=== PATIENT | male | born 1980 | race Caucasian/White ===

== ENCOUNTER 2020-06-09 08:23 | Outpatient (REF) | payer OTHER, SELFPAY | END 2020-06-09 08:24 | disposition home or self-care (01) | LOC: HO.LAB 08:23 | PROVIDERS: Visit Provider Internal Medicine | DX: Z20.828 Contact with and (suspected) exposure to other viral communicable diseases (principal) | CPT/HCPCS: 87635 ==

== ENCOUNTER → 2020-06-29 15:44 | Outpatient (BNVA) | payer OTHER, SELFPAY | PROVIDERS: Visit Provider Internal Medicine | DX: Z77.21 Contact with and (suspected) exposure to potentially hazardous body fluids (principal) | CPT/HCPCS: 36415; 84450; 84460; 85025; 86704; 86706; 86803; 87340; 87389; 90746; 99203 ==

== ENCOUNTER → 2020-07-01 13:53 | Outpatient (BNVA) | payer OTHER, SELFPAY | PROVIDERS: Visit Provider Internal Medicine | DX: Z77.21 Contact with and (suspected) exposure to potentially hazardous body fluids (principal) | CPT/HCPCS: 99213 ==

== ENCOUNTER → 2020-07-13 14:04 | Outpatient (BNVA) | payer OTHER, SELFPAY | PROVIDERS: Visit Provider Internal Medicine | DX: Z77.21 Contact with and (suspected) exposure to potentially hazardous body fluids (principal) | CPT/HCPCS: 36415; 80076; 82150; 82565; 85025; 99213 ==

== ENCOUNTER 2024-02-20 16:42 | Emergency (ER) | payer BC, SELFPAY ==
--- NOTE | ~2024-02-20 | XR_ITS ---
EXAMINATION: XR CHEST 2 VIEW CLINICAL INFORMATION: Chest pain COMPARISON: 03/07/2019 TECHNIQUE: PA and lateral views of the chest obtained. FINDINGS: The lungs are clear. There are no pleural effusions. The cardiomediastinal silhouette is normal. No rib fracture or pneumothorax is detected. XR/XR chest 2V IMPRESSION: No acute cardiopulmonary disease.
--- NOTE | 2024-02-20 16:44 | ECG_ITS ---
Test Reason : CHEST PAIN Blood Pressure : / mmHG Vent. Rate : 071 BPM Atrial Rate : 071 BPM P-R Int : 172 ms QRS Dur : 086 ms QT Int : 378 ms P-R-T Axes : 037 000 047 degrees QTc Int : 410 ms Normal sinus rhythm Nonspecific ST and T wave abnormality Borderline ECG When compared with ECG of 22-SEP-2002 10:10, ST no longer elevated in Anterior leads Nonspecific T wave abnormality now evident in Inferior leads Nonspecific T wave abnormality now evident in Lateral leads Referred By: Phyllis Sorto Electronically Signed By:BRYANT SANTIAGO
--- NOTE | 2024-02-20 16:51 | ED.GENADULT ---
HPI - General Adult General Chief complaint: Chest Pain Stated complaint: Heartburn Time Seen by Provider: 02/20/24 17:30 Source: patient History of Present Illness ED Provider: Shay LIMON narrative: 43-year-old male past medical history of GERD presenting for chest pain. Pt states he has been experiencing symptoms of heartburn for the past few days. Prior to onset he was eating a lot of candy and yesterday evening his symptoms started with nausea, a few episodes of nonbloody nonbilious emesis and chest pressure. He has had these symptoms in the past however he spoke with his PCP who instructed him to go to the ED. He experiencing mild sob this morning however that has resolved. He is still experiencing substernal chest pain. He denies fevers, chills, abd pain. Onset (ago): day(s) Location: chest Radiation: non-radiation Related Data Allergies Allergy/AdvReac Type Severity Reaction Status Date / Time No Known Allergies Allergy Verified 02/20/24 16:54 Review of Systems Review of Systems: Constitutional : No Fever, No Chills ENT/Mouth : no oral swelling, No Hoarseness, No Swallowing Difficulty Eyes: No Eye Pain, No Swelling, No Redness Cardiovascular : Chest Pain and SOB Respiratory : No Cough, No Sputum, No Wheezing, No Smoke Exposure, No Dyspnea Gastrointestinal : positive nausea and vomiting, No Diarrhea, No abdominal Pain Genitourinary : No Dysuria, No Urinary Frequency, No Hematuria Musculoskeletal : No joint pain, No Myalgias, No Joint Swelling Skin : No Skin Lesions, positive rash Neuro : No Weakness, No Numbness, No Headache Psych : No Anxiety/Panic, No Depression Heme/Lymph: No Bruising, No Lymphadenopathy Endocrine : No Polyuria, No Polydipsia All other systems reviewed and are negative [facility] Past Medical History Attestation statement: The following information was validated with the patient. [facility] Narrative: GERD Source: old records reviewed Social History Social History Smoked in Last 30 Days: No Advance Directives: No Advance Directives Information Provided: No Physical Exam ED Vital Signs: Vital Signs - 24 hr 02/20/24 16:52 02/20/24 18:40 02/20/24 19:32 Temperature 97.7 F 98.2 F 98.2 F Pulse Rate 79 58 61 Respiratory Rate 18 16 18 Blood Pressure 124/91 H 117/77 120/83 Pulse Oximetry 98 97 98 Oxygen Delivery Method Room Air Room Air Room Air BMI result Body Mass Index 28.5 Course Course Course Narrative: This is an RME done by ELDON Sorto: Additional HPI, ROS, PE not included below will be deferred to primary provider. 43 yo m hx of gerd on omeprazole presents w/ severe heartburn and chest pain today around 10 am. He reached out to pcp that recommended for him to come get seen here. Reprots laying down pain is worse and when eating sour things. Appearance: Alert.? Oriented X3.? No acute cardiopulmonary distress distress.? Head: Normocephalic, atraumatic, no step-offs or deformities Neck: Normal inspection.? Neck supple.? CVS: Pulses normal.? Respiratory: No respiratory distress.? Abdomen: Soft and nontender.? Skin: ? Normal skin color. Extremities: 5/5 strength to bilateral upper and lower extremities Back: No midline tenderness, no C-spine tenderness, full range of motion, No CVA tenderness bilaterally Neuro: Oriented X 3.? No motor deficit.? No sensory deficit. Reevaluation(s) Reevaluation #1: Chest x-ray, Pepcid, Maalox and lipase over Time: 17:45 Medications Administered Discontinued Medications Generic Name Dose Route Start Last Admin Trade Name Freq PRN Reason Stop Dose Admin Al Hydroxide/Mg Hydroxide 15 ml 02/20/24 17:40 02/20/24 18:32 Magnesium Hydrox/Alum Hydrox 30 Ml Oral.Susp PO 02/20/24 17:41 15 ml ONCE ONE Administration Famotidine 20 mg 02/20/24 17:40 02/20/24 18:32 Famotidine 20 Mg Tablet PO 02/20/24 17:41 20 mg ONCE ONE Administration Medical Decision Making Medical Decision Making [facility] Narrative: Concerns for acid reflux, gastritis, pancreatitis I am also considering ACS/angina however less likely given HPI; troponins ordered Labs reviewed --> Negative troponin, CBC and BMP within normal limits, lipase and LFTs within normal limits - less likely biliary disease, pancreatitis EKG reviewed --> no ischemic changes appreciated - less likely ACS/angina On reassessment patient reports significant improvement of symptoms and is tolerating p.o. intake. He would like to be discharged home. I believe patient's symptoms are secondary to acid reflux. I gave him instructions to follow up with his PCP and ask for a referral to Gastroenterology. Differential Diagnosis Differential Diagnoses: The differential diagnosis associated with the presentation includes Acid reflux, ACS/angina, gastritis, pancreatitis Lab Data 02/20/24 17:07 02/20/24 17:07 Labs: Lab Results 02/20/24 02/20/24 Range/Units 17:07 18:00 WBC 5.8 (4.8-10.8) X10*3/uL RBC 4.72 (4.60-5.80) X10*6/uL Hgb 14.8 (14.0-18.0) g/dl Hct 41.2 L (42.0-52.0) % MCV 87.3 (80.0-98.0) fL MCH 31.4 (27.0-33.0) pg MCHC 35.9 (31.0-36.0) g/dl RDW 11.2 (11.0-16.0) % Plt Count 202 (160-400) X10*3/uL MPV 10.1 (9.4-12.4) fL Immature Gran % (Auto) 0.3 (0.0-0.4) % Neut % (Auto) 65.6 (45-73) % Lymph % (Auto) 25.1 (20-40) % Barton % (Auto) 6.5 (2-11) % Eos % (Auto) 2.2 (0-4) % Baso % (Auto) 0.3 (0-2) % Lymph # (Auto) 1.5 (1.2-4.9) X10*3/uL Barton # (Auto) 0.4 (0.1-1.2) X10*3/uL Eos # (Auto) 0.1 (0.0-0.4) X10*3/uL Baso # (Auto) 0.0 (0.0-0.2) X10*3/uL Abs Immat Gran (auto) 0.02 (0.00-0.03) X10*3/uL Absolute Neuts (auto) 3.8 (2.0-8.3) x10*3/uL Absolute Nucleated RBC 0.000 (0.0-0.012) X10*3/uL Nucleated RBC % (auto) 0.0 (0.0-0.2) /100WBC Sodium 138 (135-145) mmol/L Potassium 3.8 (3.3-5.1) mmol/L Chloride 102 (96-108) mmol/L Carbon Dioxide 28 (22-29) mmol/L Anion Gap 12 (12-20) BUN 18 H (9-16) mg/dL Creatinine 0.91 (0.5-1.4) mg/dL Estim Creat Clear Calc 119.3 Estimated GFR > 60 Random Glucose 116 H (60-115) mg/dL Calcium 9.2 (8.4-10.2) mg/dL Total Bilirubin 0.7 (0.0-1.0) mg/dL AST 11 (5-37) U/L ALT 13 (0-40) U/L Alkaline Phosphatase 55 (39-117) U/L Troponin I High Sens < 2.7 (<3.5-35.0) ng/L Total Protein 6.8 (6.5-8.0) g/dL Albumin 4.3 (3.5-5.0) g/dL Lipase 19 (8-78) U/L Discharge Plan Discharge Clinical Impression: Chest pain, Acid reflux Patient Disposition: Home, Self-Care Instructions: Gastroesophageal Reflux Disease (DC) Additional Instructions: Please follow-up with your PCP. You should ask for a referral to Gastroenterology You can take Pepcid and Maalox for symptomatic relief. Please refer to GERD discharge instructions for diet that may help with your symptoms She develop any new or worsening symptoms please return to the emergency department Print Language: Czech
[2024-02-20 16:52] VITALS: BP 124/91; PULSE 79; RESP 18; TEMP 36.5; O2SAT 98; BMI 28.5
[2024-02-20 17:11] LABS: MANUAL DIFF FLAG NO
[2024-02-20 17:14] LABS: Basophils Percent Auto 0.3 % (0-2); Eosinophils Absolute Auto 0.1 X10*3/uL (0.0-0.4); Eosinophils Percent Auto 2.2 % (0-4); Hematocrit 41.2 % (42.0-52.0); Hemoglobin 14.8 g/dl (14.0-18.0); Imm Gran Abs Auto 0.02 X10*3/uL (0.00-0.03); Imm Gran Pct Auto 0.3 % (0.0-0.4); Lymphocytes Absolute Auto 1.5 X10*3/uL (1.2-4.9); Lymphocytes Percent Auto 25.1 % (20-40); Mean Corpuscular HGB Conc 35.9 g/dl (31.0-36.0); Mean Corpuscular Hemoglobin 31.4 pg (27.0-33.0); Mean Corpuscular Volume 87.3 fL (80.0-98.0); Mean Platelet Volume 10.1 fL (9.4-12.4); Monocytes Absolute Auto 0.4 X10*3/uL (0.1-1.2); Monocytes Percent Auto 6.5 % (2-11); Neutrophils Absolute Auto 3.8 x10*3/uL (2.0-8.3); Neutrophils Percent Auto 65.6 % (45-73); Platelet Count 202 X10*3/uL (160-400); Red Blood Count 4.72 X10*6/uL (4.60-5.80); Red Cell Distribution Width 11.2 % (11.0-16.0); White Blood Count 5.8 X10*3/uL (4.8-10.8)
[2024-02-20 17:25] LABS: Alanine Aminotransferase 13 U/L (0-40); Albumin Level 4.3 g/dL (3.5-5.0); Alkaline Phosphatase 55 U/L (39-117); Anion Gap 12 (12-20); Aspartate Amino Transferase 11 U/L (5-37); Bilirubin Total 0.7 mg/dL (0.0-1.0); Blood Urea Nitrogen 18 mg/dL (9-16); Calcium 9.2 mg/dL (8.4-10.2); Carbon Dioxide 28 mmol/L (22-29); Chloride 102 mmol/L (96-108); Creatinine Clr Calc Pharmacy 119.3; Estimated Glomerular Filt Rate > 60; Glucose Random 116 mg/dL (60-115); Potassium 3.8 mmol/L (3.3-5.1); Sodium 138 mmol/L (135-145); Total Protein 6.8 g/dL (6.5-8.0)
[2024-02-20 17:34] LABS: Troponin-I High Sensitivity < 2.7 ng/L (<3.5-35.0)
[2024-02-20 18:27] LABS: Lipase 19 U/L (8-78)
[2024-02-20] MEDS: Magnesium Hydrox/Alum Hydrox 30 ML ORAL.SUSP 15 ML PO (18:32)
[2024-02-20] MEDS: Famotidine 20 MG TABLET PO (18:32)
--- NOTE | 2024-02-20 18:38 | PC.NURSE ---
pt medicated per MAR
[2024-02-20 18:40] VITALS: BP 117/77; PULSE 58; RESP 16; TEMP 36.8; O2SAT 97
[2024-02-20 19:32] VITALS: BP 120/83; PULSE 61; RESP 18; TEMP 36.8; O2SAT 98
--- NOTE | 2024-02-20 19:35 | MHC.EDTECH ---
This tech took over care of patient at 1900,hourly rounds and vitals completed,patient is waiting for discharge at this time,call swartz in reach
[2024-02-20 19:39] VITALS: BP 120/83; PULSE 61; RESP 18; TEMP 36.8; O2SAT 98
== END 2024-02-20 19:40 | disposition home or self-care (01) ==
PROVIDERS: Physician Assistant; Emergency Provider Student in an Organized Health Care Education/Training Program
DX: R07.9 Chest pain, unspecified (principal); K21.9 Gastro-esophageal reflux disease without esophagitis; R12 Heartburn; R06.02 Shortness of breath
CPT/HCPCS: 36415; 71046; 80053; 83690; 84484; 85025; 93005; 99283; 99285

== ENCOUNTER → 2024-02-20 16:44 | Outpatient (BNV) | payer BC, SELFPAY | PROVIDERS: Emergency Provider Student in an Organized Health Care Education/Training Program; Visit Provider Internal Medicine | DX: R07.9 Chest pain, unspecified (principal); R94.31 Abnormal electrocardiogram [ECG] [EKG] | CPT/HCPCS: 93010 ==

== ENCOUNTER 2024-04-06 14:44 | Emergency (ER) | payer BC, SELFPAY ==
--- NOTE | 2024-04-06 14:53 | ED_ITS ---
HPI - Abdominal Pain General Chief Complaint: Abdominal Pain Stated Complaint: abd pain Time Seen by Provider: 04/06/24 15:56 Source: patient Limitations: no limitations History of Present Illness HPI narrative: 46-year-old male who has a history of opioid and alcohol use, currently on methadone 64 mg take-home bottles, presents for evaluation of diffuse abdominal pain. Patient states he normally is able to move his bowels without difficulty despite being on methadone. He did have a recent increase in his methadone dosing. He also admits to intermittent use of fentanyl which he snorts. Patient states he just started snorting again this past Sunday. He typically snorts 1-4 bags a day. He describes his use as episodic. Patient states he uses harm reduction techniques such as calling the safe line. Patient states the abdominal pain has been diffuse and crampy. He reports it felt similar to previous episodes of constipation. He took some milk of magnesia prior to coming in states that he is already feeling better. Currently he is asymptomatic and has no physical complaints at this time. He is passing flatus. He actually feels the urge to move his bowels. He denies any urinary symptoms. He denies any suicidal or homicidal ideation. Patient is refusing any additional care team referral or treatment. 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 He does endorse positive support team from his at home. Related Data Previous Rx's ?Medication ?Instructions ?Recorded docusate sodium 100 mg capsule 100 mg PO BID #20 caps 04/06/24 (Colace) polyethylene glycol 3350 17 17 g PO DAILY #238 grams 04/06/24 gram/dose oral powder (Miralax) Allergies Allergy/AdvReac Type Severity Reaction Status Date / Time No Known Allergies Allergy Verified 04/06/24 14:56 Review of Systems Review of Systems Yes all other systems are reviewed and are negative Gastrointestinal: Reports abdominal pain (Resolved), Reports constipation, Denies loose stools, Denies nausea and Denies vomiting Psychiatric: Denies homicidal ideation and Denies suicidal ideation [facility] Past Medical History Attestation statement: The following information was validated with the patient. [facility] Narrative: Alcohol and opioid use history Social History Social History Smoked in Last 30 Days: Yes Substance Use Type: Other Substance Use Type Other:: fentanyl, METHADONE Substance Use Frequency: Daily Last Used Substance: Hours (ago) Any prior treatment program specific to substance use: No Advance Directives: No Advance Directives Information Provided: No Physical Exam ED Vital Signs: Vital Signs - 24 hr 04/06/24 14:54 04/06/24 16:09 Temperature 97.9 F 98.5 F Pulse Rate 65 59 Respiratory Rate 18 16 Blood Pressure 127/79 129/80 Pulse Oximetry 97 96 Oxygen Delivery Method Room Air Room Air BMI result Body Mass Index 27.7 Patient is well-appearing and in no acute distress. Patient denying any physical complaints at this time. Const General: cooperative, alert, awake and Physically active Resp Auscultation: clear to auscultation bilaterally Cardio Rate: regular rate Rhythm: regular rhythm GI Other: Normoactive bowel sounds throughout. Abdomen is soft and nontender. There is no peritoneal signs. No Morales's sign. No CVAT. Psych Attitude: cooperative Course Course Course Narrative: This is a Rapid Medical Exam performed in triage by Teri Crowley PA-C. Full HPI, ROS and PE to be performed by primary ED provider. 43 yo M w/no sig PMHx presenting to the ED c/o epigastric abdominal pain radiating to back x5-6hrs. Admits to constipation, last BM 2 days. Denies passing flatus today, believes passed yesterday, is burping. Took Milk of Mag 30mins [employer]. On Methadone 64mg & started using fentanyl 2 days ago (sniffs). denies ETOH use (4yrs sober) PE: uncomfortable, abdomen soft +epigastric/RUQ ttp, no rebound or guarding Plan: Labs, UA, tox screen Medical Decision Making Medical Decision Making MDM Narrative: 43-year-old male who has a history of opioid and alcohol use history, currently on methadone, recent episodic usage of snorting fentanyl, presents with concern for constipation. Currently the patient is asymptomatic and has no physical complaints at this time after using milk of magnesia. He is refusing any additional workup including labs or imaging. He is requesting discharge home. I reviewed all labs at this time. No acute process. There is no acute psychiatric process at this time. There is no evidence of opioid intoxication or withdrawal. Abdomen exam is reassuring. Patient expresses understanding of all discharge instructions and has no further questions at this time. Feels comfortable with discharge plan, is able to contract for safety and once again endorses good support at home. He is agreeable to trial of MiraLax and Colace. Patient discharged with his . No further questions at this time. Differential Diagnosis Differential Diagnoses: The differential diagnosis associated with the presentation includes Opiate use, episodic Opioid dependence Dehydration Constipation Bowel obstruction Lab Data MDM Lab Attestation statement: I reviewed the patient's lab results. 04/06/24 15:16 04/06/24 15:16 Labs: Lab Results 04/06/24 Range/Units 15:16 WBC 5.0 (4.8-10.8) X10*3/uL RBC 4.77 (4.60-5.80) X10*6/uL Hgb 14.7 (14.0-18.0) g/dl Hct 41.9 L (42.0-52.0) % MCV 87.8 (80.0-98.0) fL MCH 30.8 (27.0-33.0) pg MCHC 35.1 (31.0-36.0) g/dl RDW 11.4 (11.0-16.0) % Plt Count 184 (160-400) X10*3/uL MPV 10.8 (9.4-12.4) fL Immature Gran % (Auto) 0.2 (0.0-0.4) % Neut % (Auto) 57.4 (45-73) % Lymph % (Auto) 32.5 (20-40) % [place] % (Auto) 5.9 (2-11) % Eos % (Auto) 3.4 (0-4) % Baso % (Auto) 0.6 (0-2) % Lymph # (Auto) 1.6 (1.2-4.9) X10*3/uL [place] # (Auto) 0.3 (0.1-1.2) X10*3/uL Eos # (Auto) 0.2 (0.0-0.4) X10*3/uL Baso # (Auto) 0.0 (0.0-0.2) X10*3/uL Abs Immat Gran (auto) 0.01 (0.00-0.03) X10*3/uL Absolute Neuts (auto) 2.8 (2.0-8.3) x10*3/uL Absolute Nucleated RBC 0.000 (0.0-0.012) X10*3/uL Nucleated RBC % (auto) 0.0 (0.0-0.2) /100WBC Sodium 141 (135-145) mmol/L Potassium 3.7 (3.3-5.1) mmol/L Chloride 106 (96-108) mmol/L Carbon Dioxide 25 (22-29) mmol/L Anion Gap 14 (12-20) BUN 14 (9-16) mg/dL Creatinine 0.92 (0.5-1.4) mg/dL Estim Creat Clear Calc 111.2 Estimated GFR > 60 Random Glucose 143 H (60-115) mg/dL Calcium 9.2 (8.4-10.2) mg/dL Magnesium 2.1 (1.6-2.6) mg/dL Total Bilirubin 0.7 (0.0-1.0) mg/dL Direct Bilirubin 0.2 (0.0-0.5) mg/dL AST 11 (5-37) U/L ALT 11 (0-40) U/L Alkaline Phosphatase 50 (39-117) U/L Total Protein 6.5 (6.5-8.0) g/dL Albumin 4.0 (3.5-5.0) g/dL Lipase 23 (8-78) U/L Independent Interpretation I performed an independent interpretation of an: EKG Independent Historian Clinical information obtained from an independent historian. History obtained from or confirmed by: Spouse Tests considered The following testing was considered but not selected: Additional testing considered with CT or plain film abdominal x-ray however patient refused Prescription Management I considered prescription management with: Other (Colace and MiraLax) Social Determinants Patient?s care significantly limited by Social Determinants of Health including: Alcoholism and drug addiction in family Discharge Plan Discharge Clinical Impression: Abdominal pain, Constipation due to opioid therapy Patient Disposition: Home, Self-Care Instructions: Constipation (ED), Abdominal Pain (ED) Additional Instructions: Drink plenty of fluids. Continue methadone as directed. Avoid all opioid use. If you do continue to use, continue to use the arm reduction techniques including the safe line. Colace and MiraLax as directed. Follow-up with your primary care provider. Call this week to schedule a follow- up appointment. Return to the emergency department if you have any worsening of symptoms, or any concerns. Get well soon! Prescriptions: New docusate sodium [Colace] 100 mg capsule 100 mg PO BID Qty: 20 0RF polyethylene glycol 3350 [Miralax] 17 gram/dose powder 17 g PO DAILY Qty: 238 0RF Print Language: Ukrainian
[2024-04-06 14:54] VITALS: BP 127/79; PULSE 65; RESP 18; TEMP 36.6; O2SAT 97; BMI 27.7
--- NOTE | 2024-04-06 14:55 | ECG_ITS ---
Test Reason : ABDOMINAL PAIN Blood Pressure : / mmHG Vent. Rate : 057 BPM Atrial Rate : 057 BPM P-R Int : 182 ms QRS Dur : 082 ms QT Int : 426 ms P-R-T Axes : 048 009 037 degrees QTc Int : 414 ms Sinus bradycardia Otherwise normal ECG When compared with ECG of 20-FEB-2024 16:43, Heart rate has decreased Referred By: Teri Crowley Electronically Signed By:VLAD TAVAREZ
[2024-04-06 15:32] LABS: MANUAL DIFF FLAG NO
[2024-04-06 15:34] LABS: Basophils Percent Auto 0.6 % (0-2); Eosinophils Absolute Auto 0.2 X10*3/uL (0.0-0.4); Eosinophils Percent Auto 3.4 % (0-4); Hematocrit 41.9 % (42.0-52.0); Hemoglobin 14.7 g/dl (14.0-18.0); Imm Gran Abs Auto 0.01 X10*3/uL (0.00-0.03); Imm Gran Pct Auto 0.2 % (0.0-0.4); Lymphocytes Absolute Auto 1.6 X10*3/uL (1.2-4.9); Lymphocytes Percent Auto 32.5 % (20-40); Mean Corpuscular HGB Conc 35.1 g/dl (31.0-36.0); Mean Corpuscular Hemoglobin 30.8 pg (27.0-33.0); Mean Corpuscular Volume 87.8 fL (80.0-98.0); Mean Platelet Volume 10.8 fL (9.4-12.4); Monocytes Absolute Auto 0.3 X10*3/uL (0.1-1.2); Monocytes Percent Auto 5.9 % (2-11); Neutrophils Absolute Auto 2.8 x10*3/uL (2.0-8.3); Neutrophils Percent Auto 57.4 % (45-73); Platelet Count 184 X10*3/uL (160-400); Red Blood Count 4.77 X10*6/uL (4.60-5.80); Red Cell Distribution Width 11.4 % (11.0-16.0)
[2024-04-06 15:50] LABS: Alanine Aminotransferase 11 U/L (0-40); Alkaline Phosphatase 50 U/L (39-117); Anion Gap 14 (12-20); Aspartate Amino Transferase 11 U/L (5-37); Bilirubin Direct 0.2 mg/dL (0.0-0.5); Bilirubin Total 0.7 mg/dL (0.0-1.0); Blood Urea Nitrogen 14 mg/dL (9-16); Calcium 9.2 mg/dL (8.4-10.2); Carbon Dioxide 25 mmol/L (22-29); Chloride 106 mmol/L (96-108); Creatinine Clr Calc Pharmacy 111.2; Estimated Glomerular Filt Rate > 60; Glucose Random 143 mg/dL (60-115); Lipase 23 U/L (8-78); Magnesium 2.1 mg/dL (1.6-2.6); Potassium 3.7 mmol/L (3.3-5.1); Sodium 141 mmol/L (135-145); Total Protein 6.5 g/dL (6.5-8.0)
[2024-04-06 16:09] VITALS: BP 129/80; PULSE 59; RESP 16; TEMP 36.9; O2SAT 96
[2024-04-06 16:11] LABS: Troponin-I High Sensitivity < 2.7 ng/L (<3.5-35.0)
[2024-04-06 16:17] VITALS: BP 128/70; PULSE 66; RESP 12; TEMP 36.8; O2SAT 98
== END 2024-04-06 16:20 | disposition home or self-care (01) ==
PROVIDERS: Physician Assistant; Emergency Provider Emergency Medicine
DX: R10.9 Unspecified abdominal pain (principal); K59.03 Drug induced constipation; Y92.89 Other specified places as the place of occurrence of the external cause; R00.1 Bradycardia, unspecified; T40.415A Adverse effect of fentanyl or fentanyl analogs, initial encounter; Z79.899 Other long term (current) drug therapy
CPT/HCPCS: 36415; 80048; 80076; 83690; 83735; 84484; 85025; 93005; 99284

== ENCOUNTER 2024-09-02 14:17 | Emergency (ER) | payer BC, SELFPAY ==
--- NOTE | ~2024-09-02 | XR_ITS ---
EXAMINATION: XR CHEST CLINICAL INFORMATION: coughing. pneumonia COMPARISON: X-ray dated February 20, 2024 TECHNIQUE: Frontal view of the chest was obtained. FINDINGS: No consolidation, pleural effusion or pneumothorax. Cardiomediastinal silhouette is normal. Mild multilevel thoracic spondylosis. Mild S-shaped curvature of the upper thoracic spine. XR/XR chest 1V IMPRESSION: No acute airspace disease. Electronically signed by: Sky Philip MD 09/02/2024 03:04 PM [facility]
[2024-09-02 14:30] VITALS: BP 142/97; PULSE 87; RESP 16; TEMP 36.9; O2SAT 97; BMI 26.9
--- NOTE | 2024-09-02 14:36 | ED.GENADULT ---
HPI - General Adult General Chief complaint: General Medical Stated complaint: Vomiting, sweating Time Seen by Provider: 09/02/24 21:48 Source: patient and other (Significant other, Bri) Mode of arrival: ambulatory Limitations: no limitations History of Present Illness ED Provider: Dr. 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 Patient states that he did go to an urgent care clinic on 08/30/2024 since his left ear was draining fluid and he was diagnosed with left otitis media and started on amoxicillin 500 mg b.i.d. x7 days. He states that his left ears improved but his other symptoms have persisted. He states that his cough is productive of thick, yellow sputum with no blood in the sputum. He states that he has increased fatigue, feels hot, cold and feels dizzy. He states he was not able to go to work today secondary to his symptoms. Related Data Previous Rx's ?Medication ?Instructions ?Recorded docusate sodium 100 mg capsule 100 mg PO BID #20 caps 04/06/24 (Colace) polyethylene glycol 3350 17 17 g PO DAILY #238 grams 04/06/24 gram/dose oral powder (Miralax) azithromycin 250 mg tablet See Rx Instructions PO .COMPLEX #6 09/02/24 (Zithromax Z-Andres) tabs Allergies Allergy/AdvReac Type Severity Reaction Status Date / Time No Known Allergies Allergy Verified 09/02/24 14:32 Review of Systems Review of Systems: Yes all other systems are reviewed and are negative [facility] Past Medical History [facility] Narrative: Social history: He does smoke cigarettes. He denies alcohol use. He does use intranasal heroin and he was used over the last 4 days. He did get his methadone dose today. Social History Social History Substance Use Type: Other Advance Directives: No Advance Directives Information Provided: Yes Do you have a plan to hurt others: No Plan Physical Exam ED Vital Signs: Vital Signs - 24 hr 09/02/24 14:30 09/02/24 19:28 09/02/24 22:24 Temperature 98.4 F 99.3 F 99.3 F Pulse Rate 87 74 74 Respiratory Rate 16 18 18 Blood Pressure 142/97 H 136/83 136/83 Pulse Oximetry 97 97 97 Oxygen Delivery Method Room Air BMI result Body Mass Index 26.9 Vital signs were normal. Exam: General: Awake, alert in no distress Head: Normocephalic, atraumatic EENT: PERRL, Lids normal, sclera normal, conjunctiva normal, nose normal , ears normal, throat without erythema or exudates Neck: Supple, no adenopathy Lung: breath sounds symmetric, no wheezing, rales or rhonchi Chest: symmetric movement, nontender Heart: regular rate and rhythm, normal S1, S2 no murmurs or rubs Abdomen: soft, non-tender, nondistended, normal bowel sounds Back: no vertebral tenderness, no CVAT Extremities: no deformities, moves all extremities symmetrically Neuro: Awake, alert, oriented, normal speech, cranial nerves intact, moves all extremities symmetrically Psych: Pleasant, cooperative Medications Administered Discontinued Medications Generic Name Dose Route Start Last Admin Trade Name Freq PRN Reason Stop Dose Admin Azithromycin 500 mg 09/02/24 22:01 09/02/24 22:23 Azithromycin 500 Mg Tablet PO 09/02/24 22:02 500 mg ONCE ONE Administration Medical Decision Making Medical Decision Making MDM Narrative: RME: 44-year-old male presents to ED for URI symptoms. Negative COVID flu RSV at urgent care but never had a chest x-ray. Patient used fentanyl on Sunday. Patient is on methadone. 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 Patient states that he did go to an urgent care clinic on 08/30/2024 since his left ear was draining fluid and he was diagnosed with left otitis media and started on amoxicillin 500 mg b.i.d. x7 days. He states that his left ears improved but his other symptoms have persisted. He states that his cough is productive of thick, yellow sputum with no blood in the sputum. He states that he has increased fatigue, feels hot, cold and feels dizzy. He states he was not able to go to work today secondary to his symptoms. Vital signs were normal. Physical examination was unremarkable. Differential diagnosis: ?Includes but is not limited to viral syndrome, bronchitis, pneumonia, COVID-19, influenza, RSV Course: My independent interpretation patient's laboratory evaluation is as follows: COVID-19, influenza and RSV were negative. Patient's chest x-ray revealed no acute disease. This time I am concerned the patient may have bronchitis verses atypical pneumonia and I did discuss this with the patient. Patient was advised to complete his course of amoxicillin and was also started on Zithromax Z-Andres. He was advised to take Tylenol and ibuprofen for pain and fever. He was given a work note as well. He was given printed and verbal instructions and discharged home Admission/Observation Consideration of admission/observation: Escalation of care including admission/observation considered (Yes) Lab Data MDM Lab Attestation statement: I reviewed the patient's lab results. Labs: Lab Results 09/02/24 Range/Units 14:39 Influenza Type A (PCR) NEGATIVE (Negative) Influenza Type B (PCR) NEGATIVE (Negative) RSV RNA Qual (PCR) NEGATIVE (Negative) SARS-CoV-2 RNA (RT-PCR) NEGATIVE (Negative) Independent Interpretation I performed an independent interpretation of an: Plain X-Ray Interpretation: My independent interpretation patient's one-view chest x-ray is as follows: No acute disease Radiology Impression Discussion of test interpretation with radiology: I have reviewed the radiologist's reading. Radiologist Impression: XR chest 1V IMPRESSION: No acute airspace disease. Electronically signed by: Sky Philip MD 09/02/2024 03:04 PM Independent Historian Clinical information obtained from an independent historian. History obtained from or confirmed by: Other (Significant other) Prescription Management I considered prescription management with: Antibiotic Chronic Conditions Patient?s care impacted by: Other (Opiate use disorder) Discharge Plan Discharge Clinical Impression: Acute bronchitis Patient Disposition: Home, Self-Care Instructions: Acute Bronchitis (ED) Additional Instructions: Your COVID-19, influenza and RSV were negative Your chest x-ray did not show any pneumonia. Your symptoms are consistent with a viral infection that has now turned into bronchitis. Complete the course of antibiotics as prescribed by the urgent care. Take Zithromax Z-Andres. I gave you Zithromax 500 mg orally tonight. When you get the prescription tomorrow take the 1st dose again and then complete the whole Z-Andres Take ibuprofen 200 mg pills, 2 pills every 6 hours as needed for pain or fever. Take Tylenol (acetaminophen) 500 mg pills, 2 pills every 6 hours as needed for pain or fever. Follow-up with your doctor in 2 days. Please return to the emergency department if your symptoms get worse or if you develop any symptoms that are concerning to you. Please see the return to work note Prescriptions: New azithromycin [Zithromax Z-Andres] 250 mg tablet See Rx Instructions PO .COMPLEX Qty: 6 0RF Rx Instructions: take 500 mg today (day 1), then 250 mg for 4 days (days 2-5) No Action docusate sodium [Colace] 100 mg capsule 100 mg PO BID Qty: 20 0RF polyethylene glycol 3350 [Miralax] 17 gram/dose powder 17 g PO DAILY Qty: 238 0RF Stand Alone Forms: Work/School Release Interventions: ED Discharge Assessment Last Done: 09/02/24 22:24 Discharge Date/Time: 09/02/24 22:24 Print Language: Trinidadian
[2024-09-02 15:23] LABS: Influenza A PCR NEGATIVE (Negative); Influenza B PCR NEGATIVE (Negative); Resp Syncy Virus RNA Qual PCR NEGATIVE (Negative); SARS COV2 PCR INHOUSE NEGATIVE (Negative)
[2024-09-02 19:28] VITALS: BP 136/83; PULSE 74; RESP 18; TEMP 37.4; O2SAT 97
[2024-09-02] MEDS: Azithromycin 500 MG TABLET PO (22:23)
[2024-09-02 22:24] VITALS: BP 136/83; PULSE 74; RESP 18; TEMP 37.4; O2SAT 97
== END 2024-09-02 22:24 | disposition home or self-care (01) ==
PROVIDERS: Physician Assistant; Emergency Provider Emergency Medicine Emergency Medical Services
DX: J20.9 Acute bronchitis, unspecified (principal); R05.9 Cough, unspecified; Z03.818 Encounter for observation for suspected exposure to other biological agents ruled out
CPT/HCPCS: 0241U; 71045; 99282; 99283

== ENCOUNTER → 2024-09-02 14:36 | Outpatient (BNV) | payer BC, SELFPAY | PROVIDERS: Visit Provider Radiology Diagnostic Radiology | DX: R05.9 Cough, unspecified (principal) | CPT/HCPCS: 71045 ==